=== PATIENT | female | born 1945 | race Caucasian/White ===

== ENCOUNTER 2016-08-08 12:29 | Inpatient (IN) | payer MEDICARE, BC ==
--- NOTE | ~2016-08-08 | CR72 ---
[facility] A Service of [facility] RADIOLOGY TEXT RESULTS PATIENT: SAIRA ZIMMERMAN LOCATION: [facility] [id number] : [birth year] UNIT #: [id number] AGE: [address]: Chelle Munroe MD SEX: F ORDER DR: [id number] [facility] [address]. [place], [place] [address] [id number] I MR#: [id number] Acc #: [id number] NAME: SAIRA ZIMMERMAN. : 1945 SEX: F STUDY DATE/TIME: 08/09/2016 1:59 UNIT: [facility] ROOM: [facility] STUDY DESCRIPTION: CR Chest Single View Portable Attending Physician: Chelle Munroe M.D. Ordering Physician: Vanesa Brannon M.D. Primary Care Physician: Pk Dodd M.D. MEDICAL IMAGING REPORT This report is preliminary unless electronic signature is present EXAM Chest x-ray 08/09/2016 HISTORY 71-year-old female with acute left femur fracture. Exam for preoperative testing. She notes some shortness of air. TECHNIQUE AP portable upright chest x-ray. FINDINGS No active disease in the chest. No visible pulmonary infiltrate, pneumothorax or pleural effusion. Heart size normal. Severe degenerative arthropathy left shoulder. IMPRESSION No active disease. Dictated by... Willi Puri M.D. THIS IS AN ELECTRONICALLY VERIFIED REPORT Willi Puri M.D. at 08/09/2016 5:59 AM SUNIL/yulisa TD: 08/09/2016 02:59 JOB #: [id number] MEDICAL IMAGING REPORT Page 1 of 1 COPY
--- NOTE | ~2016-08-08 | CO ---
Unit #: [id number] #: [id number] Patient: RIDDHI ZIMMERMAN [id number] [facility] [address]. [place], [place] [address] [id number] I MR#: [id number] NAME: RIDDHI ZIMMERMAN ROOM: 466 Age: 71 Sex: F Admission Date: 08/09/2016 : 1945 Attending Physician: Deepika Holliday M.D. Primary Care Physician: Pk Dodd M.D. Consultation Date: 08/14/2016 CONSULTATION REPORT REASON FOR CONSULTATION Followup. DISCUSSION Ms. Riddhi Duvall is a 71-year-old female, seen in room 466, bed 1 on 08/14/2016 at [facility]. The patient has a sitter, needing one-to-one monitoring. The patient continues to try to pull her IV line. Confused, guarded, and paranoid. Unable to give coherent history, confused. The patient needs help with feeding, with ADLs. Vital signs; temperature 98.0, pulse 90, respirations 16, blood pressure 143/92, oxygen saturation 99%. The patient was started on Haldol, but not much improvement. Still not sleeping. Still very agitated, requiring redirection. REVIEW OF SYSTEMS Complete review of systems is unremarkable. MENTAL STATUS EXAMINATION General appearance; the patient is thin built, casually dressed in hospital attire. Attention span and concentration, poor. Speech, minimal. Orientation, unable to assess. Mood and affect, labile. Thought process, circumstantial. Thought content; unable to assess, guarded, attending to internal stimuli. Recent and remote memory, poor. Language, poor. Fund of knowledge, poor. Insight and judgment, impaired. DIAGNOSES Psychiatric: Major neurocognitive disorder secondary to Alzheimer disease with behavioral disturbances, F02.81. ASSESSMENT AND PLAN 1. Advised at this time to continue with one-to-one monitoring at this time for the safety of the patient. 2. Recommending to continue with haloperidol and add Zyprexa 10 mg b.i.d. jordan worker is currently looking for appropriate placement for the patient such as [facility], [place], and [place]. Please feel free to call if any questions, telephone #[phone]. Dictated by... Pete Rizzo/christine TD: 08/14/2016 16:58 Unit #: [id number] #: [id number] Patient: RIDDHI ZIMMERMAN JOB #: [id number] CONSULTATION REPORT Page 1 of 1 X Guicho Alanis MD CONSULTATION REPORT
--- NOTE | ~2016-08-08 | HP ---
Unit #: [id number] #: [id number] Patient: SAIRA ZIMMERMAN [id number] [address] [place], [place] [address] [id number] I MR#: [id number] NAME: SAIRA ZIMMERMAN ROOM: [facility] Age: 71 Sex: F Admission Date: 08/08/2016 : 1945 Attending Physician: Chelle Munroe M.D. Primary Care Physician: Pk Dodd M.D. HISTORY AND PHYSICAL CHIEF COMPLAINT Fall with left distal femur fracture and hematuria. HISTORY This 71-year-old female, with COPD, hypertension, dementia and colon cancer, was transferred from [facility] Emergency Department for a distal left femur fracture. Unfortunately, the patient is extremely confused and not able to provide history. Her is no longer present. I am told that she lives with her niece, and there was blood in her underwear. There was something that occurred and the niece fell over the patient on the way to bringing her to the ER at [facility]. The patient complained of left leg pain. x-rays demonstrate a distal left femur fracture. She was also noted to have hematuria. At [facility] ER she was given morphine, Zofran, Tdap and Ativan. She was sent to this facility for further workup and treatment. Currently on examination, she is extremely confused, not able to provide history. PAST MEDICAL HISTORY 1. Anxiety and depression. 2. COPD with ongoing tobacco abuse. 3. Hyperlipidemia. 4. Dementia. 5. DJD. 6. Hypertension. 7. Congenital absence of a kidney. 8. Colon cancer status post sigmoidectomy. Last colonoscopy 05/2009. Only revealed hemorrhoids. 9. Total abdominal hysterectomy. 10. Bilateral total knee replacements. 11. Tonsillectomy. 12. Right carpal tunnel release. ALLERGIES No known drug allergies. HOME MEDICATIONS 1. Norvasc 5 mg daily. 2. Namenda 10 mg daily. 3. Aricept 10 mg daily. 4. Seroquel 25 mg q.h.s. Unit #: [id number] #: [id number] Patient: SAIRA ZIMMERMAN FAMILY HISTORY Unobtainable. SOCIAL HISTORY The patient lives with family. She smokes 1/4 pack per day of tobacco. Does use alcohol perhaps twice a week, I am told. REVIEW OF SYSTEMS Impossible to obtain, as she is very confused. PHYSICAL EXAMINATION GENERAL: Confused 71-year-old female who looks older than stated age. VITAL SIGNS: Temperature 98.2, pulse 82, respirations 20, blood pressure 138/91. HEENT: Eyes-PERRLA. Pharynx is benign, although difficult for me to look into the oropharynx, as the patient is not opening her mouth. NECK: Supple without adenopathy or thyromegaly. CHEST: Clear. CARDIAC: Normal S1, S2, without murmur. ABDOMEN: Bowel sounds are present. No hepatosplenomegaly, tenderness or masses. EXTREMITIES: Without edema. There is a left knee immobilizer in place. Pedal pulses are diminished. NEUROLOGIC: The patient is confused. She is able to move all extremities. She really will not answer my questions. She did receive a small dose of morphine before I arrived. DIAGNOSTIC STUDIES ADMISSION LABS: Hematocrit was 47.5, normal white count, platelet count. Normal coags. SMA-12 normal except for an alkaline phosphatase of 102. Urinalysis - Trace leukocyte esterase, positive nitrates, 3+ protein, 3+ blood with 200-300 red cells, 2-5 white cells, 1+ bacteria. Yeast present. IMAGING: Left hip is negative for fracture. Left femur fracture along the distal femur just above the knee prosthesis and there is a large joint effusion. CARDIOVASCULAR: EKG - Normal sinus rhythm, rate 72, with occasional APC but otherwise normal appearing. ASSESSMENT 1. Fall with left distal femur fracture. 2. Hematuria. 3. Dementia. 4. Hypertension. 5. Status post sigmoidectomy for colon cancer with negative colonoscopy in 2009. 6. DJD status post bilateral total knee replacements. 7. COPD with tobacco abuse. 8. Congenital absence of one kidney. PLANS 1. IV fluids and supportive treatment. 2. Orthopedic consultation. 3. Continue knee immobilizer. 4. Antibiotics. When treated for her femur fracture, would obtain a CT Unit #: [id number] #: [id number] Patient: SAIRA ZIMMERMAN scan of the abdomen and pelvis to better assess the kidney. She may need urology consultation depending on above. 5. EKG and chest x-ray. 6. Will clear based on above. Dictated by Pete Humphreys TD: 08/09/2016 07:36 JOB #: [id number] HISTORY AND PHYSICAL Page 1 of 1 X Vanesa Brannon MD HISTORY AND PHYSICAL
--- NOTE | ~2016-08-08 | OR ---
Unit #: [id number] #: [id number] Patient: SAIRA ZIMMERMAN [id number] [address] [place], [place] [address] [id number] I MR#: [id number] NAME: SAIRA ZIMMERMAN ROOM: [facility] Date of Procedure: 08/09/2016 Admission Date: 08/09/2016 Surgeon: Yousuf Faulkner M.D. : 1945 Attending Physician: Deepika Holliday M.D. Primary Care Physician: Pk Dodd M.D. OPERATIVE REPORT PREOPERATIVE DIAGNOSIS Angulated left distal femur periprosthetic fracture. POSTOPERATIVE DIAGNOSIS Angulated left distal femur periprosthetic fracture. PROCEDURE PERFORMED Open reduction and internal fixation with DePuy condylar locking 6-hole plate. PLANT MAINTENANCE SUPERVISOR Billy. ANESTHESIA General. ESTIMATED BLOOD LOSS About 200 to 250. DESCRIPTION OF PROCEDURE The patient was brought to the holding room. She was already on IV antibiotics. She was then given a general anesthetic and placed in decubitus position with the left side up. Left hip was prepped and draped in a sterile fashion. After this was done, a longitudinal incision was made over the distal femur on the lateral side. The subcutaneous dissected away and the vastus lateralis was split and the femur was identified. We then moved the C-arm into place. The fracture which was extended. Angulated fracture was then flexed and brought back to almost anatomic position. We then placed a 6-hole Synthes condylar locking plate on the lateral side of the femur. C-arm showed appropriate position of the fracture. We then placed the 5-0 locking screws. The patient had the 5-0 locking screws positioned, the lengths were 38, 244, 146, 148, 150, 255, and 275 and then we positioned a 7.3 mm central locking screw distally, 35 mm in length. After these were in position and tightened down, the C-arm showed appropriate position of the hardware. Then, the fracture was reduced appropriately. The wound was irrigated out and closed with a running #1 Vicryl in the fascia. The subcutaneous was closed with interrupted 0 and 2-0 Vicryl and wilver in the skin and her sterile dressing was applied. General anesthetic reversed. certified first assistant, Sunday Cervantes, was present throughout the entire case. Unit #: [id number] #: [id number] Patient: SAIRA ZIMMERMAN Dictated by... Pete Schreiber/christine TD: 08/10/2016 05:25 JOB #: [id number] OPERATIVE REPORT Page 1 of 1 X Yousuf Faulkner MD PROCEDURE OPERATIVE NOTE
--- NOTE | ~2016-08-08 | CR169 ---
[facility]. [facility] A Service of [facility] RADIOLOGY TEXT RESULTS PATIENT: SAIRA ZIMMERMAN LOCATION: [place] [address] : [birth year] UNIT #: [id number] AGE: [address]: Deepika Holliday MD SEX: F ORDER DR: [id number] [place] [id number] E MR#: [id number] Acc #: [id number] NAME: SAIRA ZIMMERMAN : 1945 SEX: F STUDY DATE/TIME: 08/08/2016 14:04 UNIT: SED ROOM: STUDY DESCRIPTION: CR Knee 2 Views Lt Attending Physician: Jeovanny Davies M.D. Ordering Physician: Jeovanny Davies M.D. Primary Care Physician: Pk Dodd M.D. MEDICAL IMAGING REPORT This report is preliminary unless electronic signature is present. STUDY Left, 2 views. HISTORY Pain after fall. FINDINGS This has been total knee replacement, but there is an oblique angulated distal femoral fracture at the upper margin of the femoral arthroplasty component. It is only mildly displaced, but there is a lipoma hemarthrosis. Dictated by... Shant Owen M.D. THIS IS AN ELECTRONICALLY VERIFIED REPORT Shant Owen M.D. at 08/09/2016 9:39 AM TOM/caty TD: 08/08/2016 16:12 JOB #: [id number] MEDICAL IMAGING REPORT Page 1 of 1
--- NOTE | ~2016-08-08 | CT71 ---
[facility] A Service of [facility] RADIOLOGY TEXT RESULTS PATIENT: SAIRA ZIMMERMAN LOCATION: [facility] : [birth year] UNIT #: [id number] AGE: [address]: Deepika Holliday MD SEX: F ORDER DR: [id number] [facility] [address] [place], [place] [address] [id number] I MR#: [id number] Acc #: [id number] NAME: SAIRA ZIMMERMAN : 1945 SEX: F STUDY DATE/TIME: 08/11/2016 15:19 UNIT: [facility] ROOM: On license of [facility] STUDY DESCRIPTION: CT Head Wo Contrast Attending Physician: Deepika Holliday M.D. Primary Care Physician: Pk Dodd M.D. MEDICAL IMAGING REPORT This report is preliminary unless electronic signature is present EXAM Head CT without contrast. HISTORY Distal femoral fracture, 08/08/2016. Onset of aggressiveness and confusion today. TECHNIQUE Axial images were obtained without contrast and compared with 06/03/2014. This CT exam was performed with one or more of the following radiation dose reduction techniques: automatic exposure control, adjustment of mA and/or kV according to patient size, and iterative reconstruction. FINDINGS Generalized atrophy is noted. There is no evidence of mass, hemorrhage, or edema. No midline shift is noted. Extraaxial structures are unremarkable. IMPRESSION Atrophy. No acute findings. STAT * RESULT Dictated by... Shiraz Okeefe M.D. THIS IS AN ELECTRONICALLY VERIFIED REPORT Shiraz Okeefe M.D. at 08/14/2016 5:22 PM RLF/terraw [facility] A Service of [facility] RADIOLOGY TEXT RESULTS PATIENT: SAIRA ZIMMERMAN LOCATION: [facility] : [birth year] UNIT #: [id number] AGE: [address]: Deepika Holliday MD SEX: F ORDER DR: TD: 08/11/2016 15:52 JOB #: [id number] MEDICAL IMAGING REPORT Page 1 of 1 COPY
--- NOTE | ~2016-08-08 | DS ---
Unit #: [id number] #: [id number] Patient: SAIRA ZIMMERMAN [id number] [place] [id number] [place], [place] [address] [id number] I MR#: [id number] NAME: SAIRA ZIMMERMAN ROOM: [facility] Age: 71 Sex: F Admission Date: 08/09/2016 : 1945 Discharge Date: 08/14/2016 Attending Physician: Deepika Holliday M.D. Primary Care Physician: Pk Dodd M.D. DISCHARGE SUMMARY REASON FOR ADMISSION Fall with resultant left distal femur fracture/hematuria. HISTORY OF PRESENT ILLNESS/HOSPITAL COURSE The patient is a 71-year-old female with an underlying history of COPD, hypertension, dementia, colon cancer in the past, was transferred from [facility] secondary to distal left femur fracture. The patient, herself, has likely moderate to severe end stage dementia with associated behavioral disturbance. She was noted to have a distal left femur fracture and subsequently was transferred to [facility]. Consultation was subsequently placed to Dr. Faulkner and associates of Orthopedic Services. The patient underwent open reduction internal fixation with DePuy condylar locking six hole plate placement. This was done on August 09, 2016, postoperatively and from an orthopedic standpoint she otherwise did well. Her final urine culture result did grow E. coli. She was appropriately treated with ceftriaxone while she was here and she has completed her course. Secondary to associated dementia, she did have behavioral disturbance and likely a component of sundowning. UTI as well as associated distal femur fracture were contributing factor. Consultation was placed to Dr. Alanis, Psychiatry Services. Medications were adjusted while she was here. Head CT without contrast was also performed which did show atrophy but no acute process. At this point in time, the patient is currently medically stable for transfer to a rehab facility. Consideration may be given to local intermodal truck driver placement as well. FINAL DISCHARGE DIAGNOSES 1. Status post fall with resultant left distal femur fracture. 2. Urinary tract infection, Escherichia coli: Treated with ceftriaxone. 3. End stage dementia with associated behavioral disturbance. 4. Chronic obstructive pulmonary disease with ongoing tobacco abuse. 5. Anxiety. 6. Depression. 7. Hyperlipidemia. 8. Osteoarthritis. 9. Hypertension. 10. Prior history of colon cancer, status post sigmoidectomy. Unit #: [id number] #: [id number] Patient: SAIRA ZIMMERMAN FINAL DISCHARGE MEDICATIONS 1. Prednisone 20 mg p.o. daily x3 days. 2. Duo-Neb aerosol solution q.6 hours scheduled, q.2 p.r.n. 3. Lovenox 40 mg subcu q.24 hours until August 23, 2016. 4. Zofran 4 mg p.o. q.6 p.r.n. 5. Haldol 5 mg p.o. q.8. 6. Seroquel 25 mg p.o. q. h.s. 7. Norvasc 5 mg p.o. daily. 8. Bowel regimen as directed per rehab facility. 9. Namenda 10 mg p.o. daily. 10. Aricept 10 mg p.o. q. h.s. 11. Lortab 7.5/325, one to two tablets p.o. q.4 p.r.n. #56, prescription given by Dr. Faulkner. DISCHARGE CONDITION Stable. DISCHARGE DISPOSITION To rehab. RESEARCH EPIDEMIOLOGIST PROGNOSIS Guarded secondary to associated end stage dementia. Dictated by... Pete Chacko/caterina TD: 08/14/2016 13:01 JOB #: [id number] DISCHARGE SUMMARY Page 1 of 1 X Deepika Holliday MD X DISCHARGE SUMMARY
--- NOTE | ~2016-08-08 | CR106 ---
[facility]. [facility] A Service of [facility] RADIOLOGY TEXT RESULTS PATIENT: SAIRA ZIMMERMAN LOCATION: [place] [address] : [birth year] UNIT #: [id number] AGE: [address]: Chelle Munroe MD SEX: F ORDER DR: [id number] [address] [address] [id number] E MR#: [id number] Acc #: [id number] NAME: SAIRA ZIMMERMAN : 1945 SEX: F STUDY DATE/TIME: 08/08/2016 14:58 UNIT: SED ROOM: STUDY DESCRIPTION: CR Femur 2 Views Lt Attending Physician: Jeovanny Davies M.D. Ordering Physician: Jeovanny Davies M.D. Primary Care Physician: Pk Dodd M.D. MEDICAL IMAGING REPORT This report is preliminary unless electronic signature is present. EXAM Left femur INDICATIONS Fall with pain in left leg. Patient fell today. She was combative. FINDINGS AP and lateral views of the femur were obtained. There is also hip series and a knee series. There is an acute fracture involving the distal femur just above the knee prosthesis and there is a large joint effusion. The fracture runs obliquely from anterior to posterior. No hip fracture is visible. IMPRESSION Acute oblique fracture running from anterosuperior to posteroinferior just above the knee prosthesis. Dictated by... Gregorio Platt M.D. THIS IS AN ELECTRONICALLY VERIFIED REPORT Gregorio Platt M.D. at 08/09/2016 7:09 AM Marisela TD: 08/08/2016 17:40 JOB #: [id number] MEDICAL IMAGING REPORT Page 1 of 1
--- NOTE | ~2016-08-08 | CO ---
Unit #: [id number] #: [id number] Patient: RIDDHI HICKS [id number] [facility] [address]. [place], [place] [address] [id number] I MR#: [id number] NAME: RIDDHI HICKS ROOM: 466 Age: 71 Sex: F Admission Date: 08/09/2016 : 1945 Attending Physician: Deepika Holliday M.D. Primary Care Physician: Pk Dodd M.D. Consultation Date: 08/11/2016 CONSULTATION REPORT REASON FOR CONSULTATION Aggression, dementia. HISTORY OF PRESENT ILLNESS Ms. Riddhi Hicks is a 71-year-old white female, seen in room 466, bed 1 on 08/11/2016 at [facility]. The patient was dressed in hospital attire, lying in a recliner, agitated, unable to give any reliable information, confused. The patient was constantly needing one-to-one monitoring, constantly trying to get out of the bed, and subsequently the patient was given Haldol 5 mg deep intramuscular which was effective. The patient's reported that she was diagnosed with dementia 3 to 4 years ago and after that she has been having downhill course. The patient's vital signs; temperature 98.7, pulse 118, respirations 20, blood pressure 116/75, oxygen saturation 96%. PAST PSYCHIATRIC HISTORY Remarkable for dementia, diagnosed 3 years ago. MEDICAL HISTORY Remarkable for COPD, hyperlipidemia, dementia, degenerative joint disease, recent fall and injuring her hip bone requiring surgery, congenital abscess of kidney, colon cancer, total abdominal hysterectomy. MEDICATIONS The patient is on Norvasc 5 mg daily, Namenda 10 mg daily, Aricept 10 mg daily, Seroquel 25 mg at bedtime. FAMILY HISTORY AND SOCIAL HISTORY The patient lives with her family. No history of any abuse. No history of any substance abuse. REVIEW OF SYSTEMS Complete review of systems is remarkable for agitation and confusion. MENTAL STATUS EXAMINATION General appearance, the patient dressed in hospital attire, very agitated, confused. Attention span and concentration, poor. Speech, disorganized. Oriented in self. Mood and affect were labile. Thought process, tangential. Thought content, guarded, paranoid, seems to be attending to internal stimuli. Recent and remote memory, poor. Language, unable to test. Fund of knowledge, poor. Insight and judgment, impaired. DIAGNOSES Psychiatric: Psychosis, not otherwise specified, F29.0; major Unit #: [id number] #: [id number] Patient: RIDDHI HICKS neurocognitive disorder due to Alzheimer disease with behavior disturbances, F02.81. Secondary diagnosis: Deferred. Medical diagnosis: Please refer to H and P. Stressors: Psychosocial stressor. ASSESSMENT AND PLAN 1. Supportive psychotherapy and psychoeducation provided to the patient and family, but the patient unable to comprehended at this time. 2. Educated about course and prognosis of illness. 3. Advised at this time to give Haldol 5 mg deep intramuscular IM now and start Haldol 5 mg t.i.d. p.o. or IM route. We will continue to follow. If needed, consider further adjustment of medication. Please feel free to call if any questions, telephone #[phone]. Dictated by... Pete Rizzo/christine TD: 08/12/2016 01:05 JOB #: [id number] CONSULTATION REPORT Page 1 of 1 X Guicho Alanis MD X CONSULTATION REPORT
--- NOTE | ~2016-08-08 | CO ---
Unit #: [id number] #: [id number] Patient: RIDDHI ZIMMERMAN [id number] [facility] [address]. [place], [place] [address] [id number] I MR#: [id number] NAME: RIDDHI ZIMMERMAN ROOM: 466 Age: 71 Sex: F Admission Date: 08/09/2016 : 1945 Attending Physician: Deepika Holliday M.D. Primary Care Physician: Pk Dodd M.D. Consultation Date: 08/12/2016 CONSULTATION REPORT REASON FOR CONSULTATION Followup. DISCUSSION Ms. Riddhi Duvall is a 71-year-old white female, seen in room 466, bed 1 at [facility] on 08/12/2016. The patient continues to be nervous, constantly picking on things, restless, anxious, needing one-to-one monitoring, guarded, paranoid. The patient was unable to give any reliable information. Still somewhat agitated. Compliant with medication. No side effects from medication. The patient's vital signs; temperature afebrile, respirations 16, blood pressure 114/68, oxygen saturation 97%. MENTAL STATUS EXAMINATION General appearance; the patient dressed in hospital attire. Attention span and concentration, poor. Speech, disorganized. Orientation in self. Mood and affect, labile. Thought process, disorganized. Thought content; guarded, paranoid, attending to internal stimuli. Recent and remote memory, poor. Language, poor. Fund of knowledge, impaired. Insight and judgment, impaired. DIAGNOSIS Major neurocognitive disorder secondary to Alzheimer disease with behavioral disturbances, F02.81. ASSESSMENT AND PLAN 1. Continue with one-to-one monitoring at this time for safety of the patient. 2. Advised to continue with current medication and we will continue to evaluate. If needed, consider further adjustment of medication. The patient is on haloperidol 5 mg t.i.d., p.o. or IM. The patient is to continue with Namenda and Seroquel. If needed, consider further adjustment of medication. Dictated by... Pete Rizzo/christine TD: 08/13/2016 14:12 JOB #: [id number] Unit #: [id number] #: [id number] Patient: RIDDHI ZIMMERMAN CONSULTATION REPORT Page 1 of 1 X Guicho Alanis MD CONSULTATION REPORT
--- NOTE | ~2016-08-08 | EKG ---
PATIENT: SAIRA ZIMMERMAN UNIT #: [id number] Ventricular Rate: 72 BPM Atrial Rate: 72 BPM P-R Interval: 148 ms QRS Duration: 78 ms Q-T Interval: 410 ms QTC Calculation(Bezet): 448 ms P Surry: 48 degrees Calculated R Surry: 3 degrees Calculated T Surry: 25 degrees Diagnosis Line: Normal sinus rhythm with sinus arrhythmia Diagnosis Line: Nonspecific T wave abnormality Diagnosis Line: Borderline ECG Diagnosis Line: When compared with ECG of 07-MAY-2016 13:18, Diagnosis Line: No significant change was found Diagnosis Line: Confirmed by NICKY ALVAREZ MD ([id number]) on 08/09/2016 Diagnosis Line: 10:39:12 PM INTERPRETING MD: ANTONIO RIOS
--- NOTE | ~2016-08-08 | DS ---
Unit #: [id number] #: [id number] Patient: SAIRA ZIMMERMAN [id number] [address] [address] [id number] I MR#: [id number] NAME: SAIRA ZIMMERMAN ROOM: [facility] Age: 71 Sex: F Admission Date: 08/09/2016 : 1945 Discharge Date: Attending Physician: Deepika Holliday M.D. Primary Care Physician: Pk Dodd M.D. DISCHARGE SUMMARY ADDENDUM Please see previous discharge summary for details. Upon discharge and/or transfer plan to rehab facility, it was learned that, since patient does have a history of end stage dementia, unlikely to follow rehab instructions and, therefore, she was denied placement at a rehab facility. This was conveyed to the son and, therefore, at this point in time, patient will be discharged home with close outpatient observation, home health services including [facility] and/or (1) will be following the patient at time of discharge. Zyprexa 10 mg p.o. b.i.d. was added to discharge medications per the discretion of Dr. Alanis. Dictated by... Pete Chacko/mike TD: 08/15/2016 13:21 JOB #: [id number] DISCHARGE SUMMARY Page 1 of 1 X Deepika Holliday MD X DISCHARGE SUMMARY
--- NOTE | ~2016-08-08 | CR106 ---
[facility] A Service of [facility] & [facility] RADIOLOGY TEXT RESULTS PATIENT: SAIRA ZIMMERMAN LOCATION: [facility] 466-01 : [birth year] UNIT #: [id number] AGE: [address]: Deepika Holliday MD SEX: F ORDER DR: [id number] [facility] [address] [facility] [place], [place] [address] [id number] I MR#: [id number] Acc #: [id number] NAME: SAIRA ZIMMERMAN. : 1945 SEX: F STUDY DATE/TIME: 08/09/2016 13:44 UNIT: [facility] ROOM: [facility] STUDY DESCRIPTION: CR Femur 2 Views Lt Attending Physician: Deepika Holliday M.D. Ordering Physician: Yousuf Faulkner M.D. Primary Care Physician: Pk Dodd M.D. MEDICAL IMAGING REPORT This report is preliminary unless electronic signature is present EXAM Left femur 5 intraoperative spot views 08/09/2016 HISTORY Open reduction internal fixation distal femoral fracture. FINDINGS 5 spot views were obtained during open reduction internal fixation performed by Dr. Faulkner. Dictated by... Shant Owen M.D. THIS IS AN ELECTRONICALLY VERIFIED REPORT Shant Owen M.D. at 08/10/2016 3:54 PM TOM/laura TD: 08/09/2016 17:56 JOB #: [id number] MEDICAL IMAGING REPORT Page 1 of 1 COPY
--- NOTE | ~2016-08-08 | CR150 ---
[facility] A Service of [facility] RADIOLOGY TEXT RESULTS PATIENT: SAIRA ZIMMERMAN LOCATION: [place] [address] : [birth year] UNIT #: [id number] AGE: [address]: Deepika Holliday MD SEX: F ORDER DR: [id number] [place] [id number] E MR#: [id number] Acc #: [id number] NAME: SAIRA ZIMMERMAN : 1945 SEX: F STUDY DATE/TIME: 08/08/2016 13:21 UNIT: SED ROOM: STUDY DESCRIPTION: CR Hip Min 2 Views Lt Attending Physician: Jeovanny Davies M.D. Ordering Physician: Jeovanny Davies M.D. Primary Care Physician: Pk Dodd M.D. MEDICAL IMAGING REPORT This report is preliminary unless electronic signature is present. EXAM Left hip, 4 views, 08/08/2016. CLINICAL HISTORY Left leg pain after a fall. FINDINGS No definite acute abnormality. No dislocation or convincing evidence of fracture. Dictated by... Shant Owen M.D. THIS IS AN ELECTRONICALLY VERIFIED REPORT Shant Owen M.D. at 08/09/2016 9:38 AM TOM/sohan TD: 08/08/2016 17:42 JOB #: [id number] MEDICAL IMAGING REPORT Page 1 of 1
--- NOTE | ~2016-08-08 | CO ---
Unit #: [id number] #: [id number] Patient: SAIRA HICKS [id number] [address] [address] [id number] I MR#: [id number] NAME: SAIRA HICKS. ROOM: [facility] Age: 71 Sex: F Admission Date: 08/08/2016 : 1945 Attending Physician: Deepika Holliday M.D. Primary Care Physician: Pk Dodd M.D. Consultation Date: 08/09/2016 CONSULTATION REPORT REASON FOR CONSULT Left periprosthetic distal femur fracture. HISTORY OF PRESENT ILLNESS Ms. Hicks is a 71-year-old female who fell and landed on the left lower extremity. The patient has advanced dementia, and history is not able to be obtained per the patient. Most of the history was gathered from the patient's , Wilman Hicks, over the phone, as well as past medical records. The patient lives at home and, according to her , has home health coming to the house. PAST MEDICAL HISTORY 1. Anxiety. 2. Depression. 3. COPD. 4. Hyperlipidemia. 5. Dementia. 6. Osteoarthritis. 7. Hypertension. 8. Congenital absence of a kidney. 9. Colon cancer. 10. Hemorrhoids. MEDICATIONS Medications include Norvasc, Namenda, Aricept, Seroquel. ALLERGIES No known drug allergies. SURGICAL HISTORY 1. Sigmoidectomy. 2. Total abdominal hysterectomy. 3. Bilateral total knee replacement. 4. Tonsillectomy. 5. Right carpal tunnel release. FAMILY HISTORY Family history is insignificant. SOCIAL HISTORY The patient lives at home with her . She does have home health coming to her house. She smokes 1/4 pack of cigarette a day. She drinks alcohol twice a week. No illicit drug use. Unit #: [id number] #: [id number] Patient: SAIRA HICKS REVIEW OF SYSTEMS Ten organ systems reviewed. The patient denies any blurry vision, congestion, sore throat, shortness of breath, chest pain, abdominal pain, urinary incontinence, numbness, tingling, skin ulcers or lesions, anxiety, depression. Positive for joint pain. PHYSICAL EXAMINATION GENERAL: The patient is confused and demented. HEENT: PERRLA. Nonicteric sclera. THORAX: Trachea is midline. No thyromegaly. CARDIAC: S1, S2. No extra sounds. No murmurs. RESPIRATORY: Lungs are clear to auscultation. No rales or rhonchi. ABDOMEN: Nondistended, nontender. Positive bowel sounds. : Deferred. MUSCULOSKELETAL: No erythema. No ecchymosis. Dorsalis pedis, 2+, bilateral pulses. Positive knee effusion. Patient in a knee immobilizer. NEUROLOGIC: Cranial nerves II-XII intact. SKIN: Cool and dry. PSYCHIATRIC: Good insight. Good judgment. Mood and affect are pleasant. DIAGNOSTIC STUDIES LABS ON ADMISSION: White count is 9.5, hemoglobin 12.9, hematocrit 38.9, platelets 203. INR is 1. IMAGING: Two views of the right hip were ordered and reviewed and show no fractures. No acute abnormalities. Left knee x-rays were also ordered and reviewed and show a left total knee arthroplasty in good position and alignment. There is a mildly displaced periprosthetic distal femur fracture just above her total knee. ASSESSMENT Left periprosthetic distal femur fracture. PLAN I have discussed treatment options with the patient's , Wilman. We have recommended a left distal femur ORIF with plate and screws to be done by Dr. Faulkner this afternoon. The risks and benefits of the procedure were explained, as well as the description of the procedure in its entirety, along with any complications. The patient's has decided to proceed. Will go ahead and get this scheduled, get the usual preoperative lab work and testing and have the patient medically cleared for surgery. The patient will need rehab following discharge. Dictated by... Lubna AbdiAAdanCAdan for Pete Schreiber/kailyn TD: 08/09/2016 10:13 JOB #: [id number] Unit #: [id number] #: [id number] Patient: SAIRA HICKS CONSULTATION REPORT Page 1 of 1 X Mary Kate Fitzgerald CONSULTATION REPORT
--- NOTE | ~2016-08-08 | CO ---
Unit #: [id number] #: [id number] Patient: RIDDHI HICKS [id number] [facility] [address] [facility]. [place], [place] [address] [id number] I MR#: [id number] NAME: RIDDHI HICKS. ROOM: 466 Age: 71 Sex: F Admission Date: 08/09/2016 : 1945 Attending Physician: Deepika Holliday M.D. Primary Care Physician: Pk Dodd M.D. Consultation Date: 08/15/2016 CONSULTATION REPORT REASON FOR CONSULTATION Followup discussion. HISTORY OF PRESENT ILLNESS Ms. Riddhi Hicks is a 71-year-old female seen in room 466, bed 1 on 08/15/16 at [facility]. Patient has a sitter. Patient was sleeping this morning. Before that, last night, she was having difficulty staying asleep, agitation requiring 1:1 monitoring. Patient is confused, guarded, unable to give any reliable information, disorganized behavior and thought process. fiber worker is currently working on appropriate placement for the patient or go home if she can be managed at home; also look for placement such as [facility], [place], [facility]. REVIEW OF SYSTEMS Complete review of systems unremarkable. MENTAL STATUS EXAMINATION VITAL SIGNS: 97.7, 115, 18, 172/65, oxygen saturation 95%. GENERAL APPEARANCE: Patient dressed casually in hospital attire. ATTENTION SPAN AND CONCENTRATION: Poor. SPEECH: Unable to address. ORIENTATION: Unable to address. MOOD AND AFFECT: Labile THOUGHT PROCESS/THOUGHT CONTENT: Unable to address. Disorganized behavior and thought process. MEMORY: Recent and remote memory poor. LANGUAGE: Poor. Fund of knowledge: Impaired. Insight and judgment: Impaired. 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 ASSESSMENT AND PLAN 1. Recommending at this time to continue with 1:1 monitoring. 2. Continue with current medication. 3. We will continue to follow as needed. 4. Consider further additional medication to control agitation, aggression and improve sleep. Unit #: [id number] #: [id number] Patient: RIDDHI HICKS Dictated by... Guicho Alanis M.D. ORESTES/amilcar TD: 08/15/2016 20:32 JOB #: [id number] CONSULTATION REPORT Page 1 of 1 X Guicho Alanis MD CONSULTATION REPORT
[~2016-08-08 12:29] MED LIST: AMLODIPINE BESYL5 MG PO; ARICEPT5 M1 PO; ARICEPT5 MG PO; ASPIRINEC PO; AZITHROMYCIN1 GM PO; BENZONATATE PO; CIPRO PO; LEXAPRO PO; LIPITOR PO; NAMENDA10 MG PO; NO MEDICATIONS; NORVASC PO; PERCOCET PO; ROBITUSSIN A-C-S1 ML PO; SEROQUEL25 MG PO; ZOCOR20 MG PO
[2016-08-08 12:58] LABS: BASOPHIL% 0.5 % (0-2.5); EOSINOPHIL% 0.5 % (0.0-7.0); HEMATOCRIT 47.5 % (35.0-45.0); HEMOGLOBIN 16.2 gm/dL (12.0-16.0); LYMPHOCYTE% 25.2 % (17.0-45.0); MEAN CELL VOLUME 97.6 FL (83-96); MEAN CORPUSCULAR HEMOGLOBIN 33.2 PG (28-34); MEAN PLATELET VOLUME 9.9 FL (6.5-11.5); MONOCYTE# 0.4 X10e3 (0-1.0); MONOCYTE% 5.2 % (3.0-12.0); NEUTROPHIL# 5.3 X10e3 (1.5-7.1); NEUTROPHIL% 68.6 % (40-75); PLATELET COUNT 254 X10e3 (140-420); RED BLOOD COUNT 4.87 X10e (3.90-5.30); RED CELL DISTRIBUTION WIDTH 13.5 % (11.0-15.5); WHITE BLOOD COUNT 7.8 X10e3 (4.0-10.5)
[2016-08-08 13:00] LABS: DIFF IND NO
[2016-08-08 13:08] LABS: PROTHROMBIN TIME (PATIENT) 11.2 SECONDS (9.5-12.4)
[2016-08-08 13:15] LABS: PARTIAL THROMBOPLASTIN TIME 25.8 SECONDS (25.6-38.1)
[2016-08-08 13:17] LABS: ALBUMIN SERUM 4.6 g/dL (3.5-5.0); BILIRUBIN, DIRECT 0.1 mg/dL (0.0-0.2); BILIRUBIN,INDIRECT 0.4 mg/dL (0.0-0.9); BILIRUBIN,TOTAL 0.5 mg/dL (0.2-2.0); BUN/CREATININE RATIO 18.88; CALCIUM SERUM 9.5 mg/dL (8.4-10.2); CREATININE SERUM 0.9 mg/dL (0.6-1.4); GLOM FILT RATE Estimated 65.3 mL/min (>60); POTASSIUM 3.5 mmol/L (3.5-5.1); PROTEIN TOTAL SERUM 7.7 g/dL (6.0-8.3)
[2016-08-08 15:33] LABS: URINE SOURCE CLEAN CATCH
[2016-08-08 15:37] LABS: URINE APPEARANCE CLOUDY; URINE BLOOD 3+ (NEG); URINE COLOR BROWN; URINE GLUCOSE NEG (NORM); URINE KETONE TRACE (NEG); URINE LEUKOCYTE ESTERASE TRACE (NEG); URINE NITRATE POS (NEG); URINE PH 6.5 (5-8); URINE PROTEIN 3+ (NEG); URINE SPECIFIC GRAVITY 1.025 (1.003-1.035)
[2016-08-08 15:42] LABS: MICRO INDICATED? YES; URINE BILIRUBIN NEG (NEG)
[2016-08-08 15:45] LABS: URINE BACTERIA 1+ (NEG); URINE RBC 200-300 /[HPF] (0-2); URINE YEAST PRESENT
[2016-08-09 07:03] LABS: BUN/CREATININE RATIO 17.14; CALCIUM SERUM 8.7 mg/dL (8.4-10.2); CREATININE SERUM 0.7 mg/dL (0.6-1.4); GLOM FILT RATE Estimated 88.4 mL/min (>60); POTASSIUM 3.6 mmol/L (3.5-5.1)
[2016-08-09 07:17] LABS: HEMATOCRIT 38.9 % (35.0-45.0); MEAN CELL VOLUME 97.4 FL (83-96); MEAN CORPUSCULAR HEMOGLOBIN 32.3 PG (28-34); MEAN CORPUSCULAR HGB CONC 33.1 g/dL (30-36); MEAN PLATELET VOLUME 9.5 FL (6.5-11.5); RED BLOOD COUNT 3.99 X10e (3.90-5.30); RED CELL DISTRIBUTION WIDTH 13.5 % (11.0-15.5); WHITE BLOOD COUNT 9.5 X10e3 (4.0-10.5)
[2016-08-09 07:21] LABS: HEMOGLOBIN 12.9 gm/dL (12.0-16.0)
[2016-08-10 03:58] LABS: HEMATOCRIT 37.5 % (35.0-45.0); HEMOGLOBIN 12.5 gm/dL (12.0-16.0); MEAN CELL VOLUME 98.1 FL (83-96); MEAN CORPUSCULAR HEMOGLOBIN 32.6 PG (28-34); MEAN CORPUSCULAR HGB CONC 33.3 g/dL (30-36); MEAN PLATELET VOLUME 10.4 FL (6.5-11.5); RED BLOOD COUNT 3.83 X10e (3.90-5.30); RED CELL DISTRIBUTION WIDTH 13.1 % (11.0-15.5)
[2016-08-10 04:11] LABS: BUN/CREATININE RATIO 11.66; CALCIUM SERUM 8.4 mg/dL (8.4-10.2); CREATININE SERUM 0.6 mg/dL (0.6-1.4); MAGNESIUM 1.8 mg/dL (1.6-3.0); POTASSIUM 3.3 mmol/L (3.5-5.1)
[2016-08-11 03:14] LABS: BASOPHIL% 0.3 % (0-2.5); HEMATOCRIT 34.5 % (35.0-45.0); HEMOGLOBIN 11.6 gm/dL (12.0-16.0); LYMPHOCYTE# 0.6 X10e3 (1.0-3.5); LYMPHOCYTE% 6.2 % (17.0-45.0); MEAN CELL VOLUME 97.8 FL (83-96); MEAN CORPUSCULAR HEMOGLOBIN 32.9 PG (28-34); MEAN CORPUSCULAR HGB CONC 33.6 g/dL (30-36); MEAN PLATELET VOLUME 9.9 FL (6.5-11.5); MONOCYTE# 0.2 X10e3 (0-1.0); MONOCYTE% 2.3 % (3.0-12.0); NEUTROPHIL% 91.2 % (40-75); PLATELET COUNT 178 X10e3 (140-420); RED BLOOD COUNT 3.53 X10e (3.90-5.30); RED CELL DISTRIBUTION WIDTH 13.1 % (11.0-15.5); WHITE BLOOD COUNT 9.9 X10e3 (4.0-10.5)
[2016-08-11 03:18] LABS: DIFF IND NO
[2016-08-11 03:47] LABS: ALBUMIN SERUM 3.2 g/dL (3.5-5.0); BILIRUBIN,TOTAL 0.6 mg/dL (0.2-2.0); BUN/CREATININE RATIO 14.28; CALCIUM SERUM 8.5 mg/dL (8.4-10.2); CREATININE SERUM 0.7 mg/dL (0.6-1.4); GLOM FILT RATE Estimated 88.4 mL/min (>60); MAGNESIUM 2.2 mg/dL (1.6-3.0); POTASSIUM 3.7 mmol/L (3.5-5.1); PROTEIN TOTAL SERUM 5.9 g/dL (6.0-8.3)
[2016-08-11 04:22] LABS: FOLATE (FOLIC ACID) 12.7 ng/mL (>5.8)
[2016-08-12 03:57] LABS: HEMATOCRIT 33.3 % (35.0-45.0); HEMOGLOBIN 11.1 gm/dL (12.0-16.0); MEAN CORPUSCULAR HEMOGLOBIN 32.4 PG (28-34); MEAN CORPUSCULAR HGB CONC 33.4 g/dL (30-36); MEAN PLATELET VOLUME 10.1 FL (6.5-11.5); RED BLOOD COUNT 3.44 X10e (3.90-5.30); RED CELL DISTRIBUTION WIDTH 13.5 % (11.0-15.5)
[2016-08-12 03:58] LABS: WHITE BLOOD COUNT 22.4 X10e3 (4.0-10.5)
[2016-08-12 04:10] LABS: BUN/CREATININE RATIO 25.71; CALCIUM SERUM 8.7 mg/dL (8.4-10.2); CREATININE SERUM 0.7 mg/dL (0.6-1.4); GLOM FILT RATE Estimated 88.4 mL/min (>60); POTASSIUM 4.2 mmol/L (3.5-5.1)
[2016-08-13 04:30] LABS: BASOPHIL% 0.3 % (0-2.5); HEMATOCRIT 34.1 % (35.0-45.0); HEMOGLOBIN 11.3 gm/dL (12.0-16.0); LYMPHOCYTE# 3.1 X10e3 (1.0-3.5); LYMPHOCYTE% 19.8 % (17.0-45.0); MEAN CELL VOLUME 98.9 FL (83-96); MEAN CORPUSCULAR HEMOGLOBIN 32.7 PG (28-34); MEAN CORPUSCULAR HGB CONC 33.1 g/dL (30-36); MEAN PLATELET VOLUME 9.9 FL (6.5-11.5); MONOCYTE# 1.1 X10e3 (0-1.0); MONOCYTE% 7.1 % (3.0-12.0); NEUTROPHIL# 11.4 X10e3 (1.5-7.1); NEUTROPHIL% 72.8 % (40-75); PLATELET COUNT 216 X10e3 (140-420); RED BLOOD COUNT 3.45 X10e (3.90-5.30); RED CELL DISTRIBUTION WIDTH 13.5 % (11.0-15.5); WHITE BLOOD COUNT 15.6 X10e3 (4.0-10.5)
[2016-08-13 04:31] LABS: DIFF IND YES
[2016-08-13 04:44] LABS: HYPERSEGMENTED POLYS PRESENT; PLATELET ESTIMATE DECREASED (NORMAL)
[2016-08-13 04:51] LABS: BUN/CREATININE RATIO 33.33; CALCIUM SERUM 8.6 mg/dL (8.4-10.2); CREATININE SERUM 0.6 mg/dL (0.6-1.4); POTASSIUM 4.1 mmol/L (3.5-5.1)
[2016-08-14 02:04] LABS: BASOPHIL% 0.1 % (0-2.5); HEMATOCRIT 37.8 % (35.0-45.0); HEMOGLOBIN 12.5 gm/dL (12.0-16.0); LYMPHOCYTE# 0.9 X10e3 (1.0-3.5); MEAN CELL VOLUME 97.5 FL (83-96); MEAN CORPUSCULAR HEMOGLOBIN 32.3 PG (28-34); MEAN CORPUSCULAR HGB CONC 33.1 g/dL (30-36); MEAN PLATELET VOLUME 10.2 FL (6.5-11.5); MONOCYTE# 0.4 X10e3 (0-1.0); MONOCYTE% 5.1 % (3.0-12.0); NEUTROPHIL# 7.5 X10e3 (1.5-7.1); NEUTROPHIL% 84.8 % (40-75); PLATELET COUNT 254 X10e3 (140-420); RED BLOOD COUNT 3.87 X10e (3.90-5.30); RED CELL DISTRIBUTION WIDTH 13.3 % (11.0-15.5); WHITE BLOOD COUNT 8.9 X10e3 (4.0-10.5)
[2016-08-14 02:05] LABS: DIFF IND NO
[2016-08-14 02:28] LABS: CALCIUM SERUM 8.9 mg/dL (8.4-10.2); CREATININE SERUM 0.6 mg/dL (0.6-1.4); MAGNESIUM 2.3 mg/dL (1.6-3.0); POTASSIUM 3.5 mmol/L (3.5-5.1)
[2016-08-15] MEDS ORDERED: COMBIVENT MININEB INH (12:43)
[2016-08-15] MEDS ORDERED: DELTASONE20 MG PO (12:46)
[2016-08-15] MEDS ORDERED: APAP325 M1 PO (12:47)
[2016-08-15] MEDS ORDERED: LOVENOX40 MG/0.4 INJ (12:49)
[2016-08-15] MEDS ORDERED: ONDANSETRON HCL4 M1 PO (12:50)
[2016-08-15] MEDS ORDERED: BENADRYL25 M1 PO (12:52)
[2016-08-15] MEDS ORDERED: HALDOL PO (12:53)
[2016-08-15] MEDS ORDERED: QUETIAPINE FUMA25 MG PO (12:55)
[2016-08-15] MEDS ORDERED: BISACODYL10 MG PR (12:57)
[2016-08-15] MEDS ORDERED: SENNA-TIME S T1 EACH PO (12:59)
[2016-08-15] MEDS ORDERED: MILK OF MAGNESIA PO (13:01)
[2016-08-15] MEDS ORDERED: HYDROCODON-ACE1 EAC9 PO (13:02)
[2016-08-15] MEDS ORDERED: ZYPREXA10 MG PO (13:03)
== END 2016-08-15 19:46 | disposition home health service (06) | DRG 480 ==
LOC: SED 12:29 → C4C 08-09 01:15
PROVIDERS: Emergency Medicine; Family Medicine; Internal Medicine; Orthopaedic Surgery; Physician Assistant Medical
PROC: 0QSC04Z Reposition Left Lower Femur with Internal Fixation Device, Open Approach (ICD-10-PCS; principal; 2016-08-09 13:30)
DX: S72.402A Unspecified fracture of lower end of left femur, initial encounter for closed fracture (principal); G92 Toxic encephalopathy; Q60.0 Renal agenesis, unilateral; G30.9 Alzheimer's disease, unspecified; F02.81 Dementia in other diseases classified elsewhere, unspecified severity, with behavioral disturbance; M97.02XA Periprosthetic fracture around internal prosthetic left hip joint, initial encounter; N39.0 Urinary tract infection, site not specified; W18.30XA Fall on same level, unspecified, initial encounter; B96.20 Unspecified Escherichia coli [E. coli] as the cause of diseases classified elsewhere; Z85.038 Personal history of other malignant neoplasm of large intestine; I10 Essential (primary) hypertension; E78.5 Hyperlipidemia, unspecified; J44.9 Chronic obstructive pulmonary disease, unspecified; F17.210 Nicotine dependence, cigarettes, uncomplicated; Z90.710 Acquired absence of both cervix and uterus; Z96.653 Presence of artificial knee joint, bilateral; F41.9 Anxiety disorder, unspecified; F32.9 Major depressive disorder, single episode, unspecified; R31.0 Gross hematuria
CPT/HCPCS: 29505; 36415; 70450; 71010; 73502; 73552; 73560; 76000; 80048; 80053; 80076; 81003; 82270; 82607; 82746; 83735; 84132; 84443; 85025; 85027; 85610; 85730; 86850; 86900; 86901; 87086; 87088; 87186; 90715; 93005; 94640; 94760; 96372; 96374; 96375; 97116; 97163; 97167; 97530; 97535; 99291; C1713; G8978-GP; G8979-GP; G8987-GO; G8988-GO; J0131; J0360; J0696; J1170; J1630; J1650; J2060; J2270; J2405; J2920; J3010; J3475

== ENCOUNTER 2016-10-24 13:46 | Emergency (ER) | payer MEDICARE, BC ==
--- NOTE | ~2016-10-24 | CT71 ---
[facility] A Service [facility] RADIOLOGY TEXT RESULTS PATIENT: SAIRA ZIMMERMAN LOCATION: [facility] : [birth year] UNIT #: [id number] AGE: [address]: Shiraz Graham MD SEX: F ORDER DR: [id number] [place] [id number] [facility]. [place], [place] [address] [id number] E MR#: [id number] Acc #: [id number] NAME: SAIRA ZIMMERMAN. : 1945 SEX: F STUDY DATE/TIME: 10/24/2016 15:15 UNIT: [facility] ROOM: STUDY DESCRIPTION: CT Head Wo Contrast Attending Physician: Shiraz Graham M.D. Ordering Physician: Shiraz Graham M.D. Primary Care Physician: Pk Dodd M.D. MEDICAL IMAGING REPORT This report is preliminary unless electronic signature is present EXAM Head CT without contrast HISTORY Right-sided weakness since yesterday with confusion, onset today. TECHNIQUE Axial images were obtained without contrast. This CT exam was performed with one or more of the following radiation dose reduction techniques: automatic exposure control, adjustment of mA and/or kV according to patient size, and iterative reconstruction. COMPARISON STUDIES 08/11/2016. FINDINGS Generalized atrophy is noted. There is no evidence of mass lesion, hemorrhage or edema. No midline shift. Extraaxial structures are unremarkable. IMPRESSION Atrophy. No acute findings. No changes. Dictated by... Shiraz Okeefe M.D. THIS IS AN ELECTRONICALLY VERIFIED REPORT Shiraz Okeefe M.D. at 10/25/2016 9:36 AM RLF/pcl [facility] A Service [facility] RADIOLOGY TEXT RESULTS PATIENT: SAIRA ZIMMERMAN LOCATION: [facility] : [birth year] UNIT #: [id number] AGE: [address]: Shiraz Graham MD SEX: F ORDER DR: TD: 10/24/2016 20:12 JOB #: [id number] MEDICAL IMAGING REPORT Page 1 of 1 COPY
--- NOTE | ~2016-10-24 | CR72 ---
[facility] A Service of [facility] & [facility] RADIOLOGY TEXT RESULTS PATIENT: SAIRA ZIMMERMAN LOCATION: [facility] : [birth year] UNIT #: [id number] AGE: [address]: Shiraz Graham MD SEX: F ORDER DR: [id number] [facility] [address] [place], [place] [address] [id number] E MR#: [id number] Acc #: [id number] NAME: SAIRA ZIMMERMAN. : 1945 SEX: F STUDY DATE/TIME: 10/24/2016 14:37 UNIT: [facility] ROOM: STUDY DESCRIPTION: CR Chest Single View Portable Attending Physician: Shiraz Graham M.D. Ordering Physician: Shiraz Graham M.D. Primary Care Physician: Pk Dodd M.D. MEDICAL IMAGING REPORT This report is preliminary unless electronic signature is present EXAM Portable chest HISTORY Shortness of breath with right-sided weakness beginning last night. TECHNIQUE Single AP view of the chest was obtained compared with 08/09/2016 FINDINGS A single AP portable view of the chest shows both lungs to be clear. The heart is normal in size. The mediastinal contour is normal. No significant bone abnormalities are seen. IMPRESSION Normal portable chest. Dictated by... Shiraz Okeefe M.D. THIS IS AN ELECTRONICALLY VERIFIED REPORT Shiraz Okeefe M.D. at 10/25/2016 9:35 AM RHONDA/nicholas TD: 10/24/2016 19:45 JOB #: [id number] MEDICAL IMAGING REPORT Page 1 of 1 COPY
--- NOTE | ~2016-10-24 | EKG ---
PATIENT: SAIRA ZIMMERMAN UNIT #: [id number] Ventricular Rate: 85 BPM Atrial Rate: 85 BPM P-R Interval: 140 ms QRS Duration: 72 ms Q-T Interval: 420 ms QTC Calculation(Bezet): 499 ms P Grant: 13 degrees Calculated R Grant: -5 degrees Calculated T Grant: 41 degrees Diagnosis Line: Normal sinus rhythm Diagnosis Line: Nonspecific ST and T wave abnormality Diagnosis Line: Prolonged QT Diagnosis Line: Abnormal ECG Diagnosis Line: When compared with ECG of 09-AUG-2016 01:09, Diagnosis Line: Nonspecific T wave abnormality no longer evident Diagnosis Line: in Anterior leads Diagnosis Line: Diagnosis Line: QT has lengthened Diagnosis Line: Confirmed by CONNOR NAVARRO MD ([id number]) on Diagnosis Line: 10/26/2016 10:30:35 AM INTERPRETING MD: RAMON RIOS
[~2016-10-24 13:46] MED LIST changes: +APAP325 M1 PO; +BENADRYL25 M1 PO; +BISACODYL10 MG PR; +COMBIVENT MININEB INH; +DELTASONE20 MG PO; +HALDOL PO; +HYDROCODON-ACE1 EAC9 PO; +LOVENOX40 MG/0.4 INJ; +MILK OF MAGNESIA PO; +ONDANSETRON HCL4 M1 PO; +QUETIAPINE FUMA25 MG PO; +SENNA-TIME S T1 EACH PO; +ZYPREXA10 MG PO
[2016-10-24] MEDS ORDERED: SEROQUEL PO (14:05)
[2016-10-24] MEDS ORDERED: HALDOL PO (14:05)
[2016-10-24] MEDS ORDERED: PATIENT'S PHARMACY (14:05)
[2016-10-24] MEDS ORDERED: NAMENDA10 MG PO (14:05)
[2016-10-24] MEDS ORDERED: CYANOCOBAL1000 MCG/M INJ (14:06)
[2016-10-24] MEDS ORDERED: DONEPEZIL HCL10 MG PO (14:06)
[2016-10-24] MEDS ORDERED: SENNA8.6 M1 PO (14:07)
[2016-10-24] MEDS ORDERED: NORVASC PO (14:07)
[2016-10-24] MEDS ORDERED: ZYPREXA PO (14:07)
[2016-10-24 14:53] LABS: URINE SOURCE CLEAN CATCH
[2016-10-24 14:59] LABS: BASOPHIL# 0.1 X10e3 (0-0.3); BASOPHIL% 0.6 % (0-2.5); EOSINOPHIL% 0.2 % (0.0-7.0); HEMATOCRIT 46.3 % (35.0-45.0); HEMOGLOBIN 15.4 gm/dL (12.0-16.0); LYMPHOCYTE# 2.1 X10e3 (1.0-3.5); LYMPHOCYTE% 23.5 % (17.0-45.0); MEAN CELL VOLUME 94.6 FL (83-96); MEAN CORPUSCULAR HEMOGLOBIN 31.4 PG (28-34); MEAN CORPUSCULAR HGB CONC 33.2 g/dL (30-36); MEAN PLATELET VOLUME 9.5 FL (6.5-11.5); MONOCYTE# 0.7 X10e3 (0-1.0); MONOCYTE% 7.4 % (3.0-12.0); NEUTROPHIL# 6.2 X10e3 (1.5-7.1); NEUTROPHIL% 68.3 % (40-75); PLATELET COUNT 261 X10e3 (140-420); RED CELL DISTRIBUTION WIDTH 13.6 % (11.0-15.5); WHITE BLOOD COUNT 9.1 X10e3 (4.0-10.5)
[2016-10-24 15:01] LABS: DIFF IND NO
[2016-10-24 15:01] LABS: URINE APPEARANCE CLEAR; URINE BILIRUBIN NEG (NEG); URINE BLOOD TRACE (NEG); URINE COLOR YELLOW; URINE GLUCOSE NEG (NEG); URINE KETONE NEG (NEG); URINE LEUKOCYTE ESTERASE NEG (NEG); URINE NITRATE NEG (NEG); URINE PROTEIN NEG (NEG); URINE SPECIFIC GRAVITY 1.012 (1.003-1.035); URINE UROBILINOGEN 0.2 MG/DL (NEG)
[2016-10-24 15:04] LABS: URINE BACTERIA AUWI NEG (NEGATIVE); URINE SQUAMOUS EPITHELIAL CELL OCC /[HPF]; UWBCS1 AUWI 0-2 (0-5)
[2016-10-24 15:08] LABS: CULTURE INDICATED? NO
[2016-10-24 15:22] LABS: POC - CKMB 11.9 ng/mL (0.0-7.9); POC - TROPONIN <0.05 ng/mL (<=0.05)
[2016-10-24 15:29] LABS: ALBUMIN SERUM 4.3 g/dL (3.5-5.0); BILIRUBIN, DIRECT 0.1 mg/dL (0.0-0.2); BILIRUBIN,INDIRECT 0.5 mg/dL (0.0-0.9); BILIRUBIN,TOTAL 0.6 mg/dL (0.2-2.0); BUN/CREATININE RATIO 16.66; CALCIUM SERUM 9.4 mg/dL (8.4-10.2); CREATININE SERUM 0.6 mg/dL (0.6-1.4); POTASSIUM 3.4 mmol/L (3.5-5.1)
== END 2016-10-24 18:45 | disposition home or self-care (01) ==
LOC: CED 13:46
PROVIDERS: Emergency Medicine
DX: F03.90 Unspecified dementia, unspecified severity, without behavioral disturbance, psychotic disturbance, mood disturbance, and anxiety (principal); Z79.899 Other long term (current) drug therapy
CPT/HCPCS: 36415; 51701; 70450; 71010; 80048; 80076; 81003; 82550; 82553; 83605; 84484; 85025; 87040; 93005; 96360; 99285